=== PATIENT | female | born 1990 | race Caucasian/White ===

== ENCOUNTER 2019-08-04 12:03 | Day surgery (SDC) | payer OTHER ==
[2019-08-02 10:03] VITALS: BMI 36.6
[2019-08-02 11:14] LABS: Hemoglobin 14.1 g/dL (12.0-16.0); Mean Corpuscular HGB CONC 34.5 g/dL (32.0-36.0); Mean Corpuscular Hemoglobin 29.7 pg (27.0-31.0); Platelet Count 254 thou/uL (130-400); RBC Distribution Width 11.9 % (11.5-14.5); Red Blood Cell (RBC) Count 4.75 mill/uL (4.20-5.40); White Blood Cell (WBC) Count 8.3 thou/uL (4.8-10.8)
[2019-08-04] MEDS ORDERED: Fentanyl 100 MCG/2 ML VIAL ONE ×2 (12:47→15:09)
[2019-08-04] MEDS ORDERED: Propofol 500 MG/50 ML VIAL ONE (13:20)
[2019-08-04] MEDS ORDERED: PROPOFOL 20 ML ONE (14:42)
--- NOTE | 2019-08-05 15:27 | OP ---
DATE OF PROCEDURE: 08/04/2019 PREOPERATIVE DIAGNOSES: 1. Intrauterine at 13 weeks. 2. History of cervical incompetence and periviable delivery. POSTOPERATIVE DIAGNOSES: 1. Intrauterine at 13 weeks. 2. History of cervical incompetence and periviable delivery. PROCEDURE: Prophylactic Calderon cervical cerclage. ANESTHESIA: General LMA. SPAR FINISHER SURGEON: None. ESTIMATED BLOOD LOSS: 5 mL. PATHOLOGY: None. COMPLICATIONS: None. FINDINGS: A slightly foreshortened cervix. I externally dilated 1 cm, internally closed. Upon conclusion of the cerclage, the Mersilene tape was taut with the cervix closed, long and high and the knot is present about 1'o clock. DESCRIPTION OF PROCEDURE: The patient was taken to the operating room, where TIVA anesthesia was obtained without difficulty. The patient was prepped and draped in a sterile fashion in the [facility]. The bladder was catheterized and the cervix was visualized after placing a weighted speculum as well as an anterior retractor. The cervix was grasped with ring forceps on the anterior and posterior lips. A Mersilene tape was used to take 4 circumferential bites around the cervix, tying the knot at the 12 to 1 o'clock position and then after the knot was cinched down, checking the cervix to ensure it was closed as well as tying an air knot on top of the taut knot in order to identify the cerclage. There was no active bleeding at the conclusion of this procedure. The vagina was irrigated with saline and suctioned. All instruments were removed out of the vagina. The patient tolerated the procedure well. Sponge and needle counts were correct x2. The patient was taken to recovery in stable condition. Job ID: [id number]
== END 2019-08-04 17:12 | disposition home or self-care (01) ==
LOC: SDC 12:03
PROVIDERS: ATTEND Student in an Organized Health Care Education/Training Program
PROC: 0UVC7ZZ Restriction of Cervix, Via Natural or Artificial Opening (ICD-10-PCS; principal; 2019-08-04)
DX: O34.31 Maternal care for cervical incompetence, first trimester (principal); O10.911 Unspecified pre-existing hypertension complicating pregnancy, first trimester; Z3A.13 13 weeks gestation of pregnancy; Z87.59 Personal history of other complications of pregnancy, childbirth and the puerperium; Z79.82 Long term (current) use of aspirin
CPT/HCPCS: 85027; 86850; 86900; 86901; J0690; J2704; J3010

== ENCOUNTER 2020-01-03 12:19 | Observation (INO) | payer OTHER ==
[2020-01-03 12:54] VITALS: BMI 43.2
[2020-01-03] MEDS ORDERED: hydrALAZINE 20 MG/ML VIAL SLOW IVP PRN ×2 (13:12→14:51)
[2020-01-03 13:56] LABS: #Eosinphils 0.1 thou/uL (0.0-0.7); #Lymphocytes 1.9 thou/uL (1.20-3.40); #Monocytes 0.6 thou/uL (0.11-0.59); #Neutrophils 6.1 thou/uL (1.40-6.50); %Basophils 0.4 % (0.0-1.0); %Eosinophils 0.7 % (0.0-10.0); %Monocytes 6.7 % (0.0-10.0); %Neutrophils 70.1 % (42.0-75.0); Hemoglobin 12.4 g/dL (12.0-16.0); Mean Corpuscular HGB CONC 33.9 g/dL (32.0-36.0); Mean Corpuscular Hemoglobin 27.5 pg (27.0-31.0); Mean Corpuscular Volume 81.2 fL (78.0-98.0); Mean Platelet Volume 8.2 fL (7.4-10.4); Platelet Count 255 thou/uL (130-400); RBC Distribution Width 14.4 % (11.5-14.5); Red Blood Cell (RBC) Count 4.51 mill/uL (4.20-5.40); White Blood Cell (WBC) Count 8.7 thou/uL (4.8-10.8)
[2020-01-03 14:08] LABS: Creatinine, Urine 34.16 mg/dL (47-110); Protein, Urine Random Quant Less than 10 mg/dL (1-14)
[2020-01-03 14:16] LABS: ALT (SGPT) 12 U/L (8-55); AST (SGOT) 16 U/L (5-34); Albumin 3.3 g/dL (3.5-5.0); Alkaline Phosphatase 171 U/L (40-110); Anion Gap 14 mmol/L (10-20); BUN (Urea Nitrogen) Less than 4 mg/dL (7.0-18.7); Bilirubin, Total 0.6 mg/dL (0.2-1.2); Calc. Creatinine Clearance 281 mL/min (70-130); Calcium 8.5 mg/dL (7.8-10.44); Carbon Dioxide 21 mmol/L (22-29); Chloride 107 mmol/L (98-107); Estimated GFR-MDRD Greater than 90; Globulin 3.4 g/dL (2.4-3.5); Glucose 67 mg/dL (70-105); Potassium 3.4 mmol/L (3.5-5.1); Protein, Total 6.7 g/dL (6.0-8.3); Sodium 139 mmol/L (136-145)
[2020-01-03] MEDS ORDERED: Butorphanol Tartrate 1 MG/ML VIAL SLOW IVP PRN (14:51)
[2020-01-03] MEDS ORDERED: Acetaminophen 500 MG TAB PO PRN (14:51)
[2020-01-03] MEDS ORDERED: Ondansetron PF 4 MG/2 ML Vial IVP PRN (14:51)
[2020-01-03] MEDS ORDERED: Promethazine HCl 25 MG/ML VIAL IM PRN (14:51)
[2020-01-03] MEDS ORDERED: Meperidine HCl/PF 25 MG/ML VIAL IM/IV PRN (14:51)
[2020-01-03] MEDS: Betamet Acet/Betamet Na Ph 30 MG/5 ML VIAL IM SCH (15:09)
[2020-01-03] MEDS: Labetalol 100 MG TAB PO SCH (15:12)
[2020-01-03 15:13] VITALS: BP 150/68
[2020-01-03] MEDS ORDERED: Potassium Chloride 20 MEQ TAB PO SCH (20:45)
--- NOTE | 2020-01-04 05:23 | HP ---
REGULAR PHYSICIAN: Wilda Poe MD CHIEF COMPLAINT: Elevated blood pressures in the office. HISTORY OF PRESENT ILLNESS: Ms. Carrera is a 29-year-old G4, P2 with an estimated date of confinement of 02/05/2020 who was sent over to Labor and Delivery from [facility] by Dr. Poe for elevated blood pressures there. She believes her blood pressure there was 166/90. She denies associated headache, visual changes, or right upper quadrant pain. Her care has been with Dr. Poe. A cerclage was placed earlier in her . PAST OBSTETRICAL HISTORY: Includes a loss at approximately 5 months in August 2014 followed by vaginal deliveries both at 37 weeks after placement of cerclages. PAST MEDICAL HISTORY: Chronic hypertension per Dr. Poe. PAST SURGICAL HISTORY: Cholecystectomy. CURRENT MEDICATIONS: vitamins. ALLERGIES: NO KNOWN ALLERGIES. SOCIAL HISTORY: Denies tobacco, alcohol, or drug use. FAMILY HISTORY: Unremarkable. REVIEW OF SYSTEMS: Denies nausea, vomiting, fever, chills, ruptured membranes, vaginal bleeding, headache, or visual changes. PHYSICAL EXAMINATION: VITAL SIGNS: Serial blood pressures are 142/70, 147/73, 154/87, and 165/70. GENERAL: She is pleasant and in no acute distress. CHEST: Clear to auscultation. CARDIOVASCULAR: Regular rate and rhythm. ABDOMEN: Soft, nontender, and gravid. PELVIC: Deferred. heart rate tracing is stable with no decelerations. Irritability seen. LABORATORY DATA: CBC, white count 8.7, hemoglobin and hematocrit 12.4 and 36.4, platelet count 255,000. Chemistry, sodium 139, potassium 3.4. Creatinine 0.48. Glucose 67, total bilirubin 0.6, AST and ALT are 16 and 12 respectively. Random total urine protein less than 10. Urine creatinine 34.1. ASSESSMENT: 1. 35-2/7th week intrauterine . 2. Chronic hypertension, rule out severe preeclampsia. 3. Cerclage in place. PLAN: I have discussed the findings with Dr. Poe. At this time, the plan is to start her on labetalol 200 mg p.o. b.i.d. for blood pressure and to give her 2 doses of steroids for lung maturity. She will be observed closely. Job ID: [id number]
--- NOTE | 2020-01-04 06:11 | PDOC.EVN ---
Event Note - Event Note Event Note: Resting, no c/o. BPs 140-110s systolic. FHTs stable. Labs were normal on admission. Plan: Cont. Labetalol 200 BID. 2nd dose of Celestone due at 1500 today. Anticipate DC later this PM
[2020-01-04] MEDS ORDERED: Potassium Chloride 20 MEQ TAB PO SCH (08:00)
[2020-01-04] MEDS: Labetalol 100 MG TAB PO SCH (09:02)
--- NOTE | 2020-01-04 13:19 | PDOC.LDPN ---
Labor & Delivery Progress Note - Subjective Subjective: comfortable - Objective Vital signs reviewed and normal: yes General: NAD Uterine fundus: non tender FHT: category 1 [place] contractions every: 5min -: stable BP, started on labetalol, no sx pIH, neg protein. No sx PIH. DC home after 2nd dose BMZ and monitor BP closely, if increases will be for delivery. Otherwise IOL at 37w
[2020-01-04] MEDS: Betamet Acet/Betamet Na Ph 30 MG/5 ML VIAL IM SCH (15:20)
== END 2020-01-04 16:05 | disposition home or self-care (01) ==
LOC: L&D/OP 12:19 → L&D 17:14
PROVIDERS: ADMIT Student in an Organized Health Care Education/Training Program; ATTEND Student in an Organized Health Care Education/Training Program
DX: O10.913 Unspecified pre-existing hypertension complicating pregnancy, third trimester (principal); O34.33 Maternal care for cervical incompetence, third trimester; Z3A.35 35 weeks gestation of pregnancy; Z79.82 Long term (current) use of aspirin
CPT/HCPCS: 36415; 80053; 82570; 84156; 85025; 87081; 96372; G0378; J0702

== ENCOUNTER 2020-01-15 05:02 | Outpatient (CLI) | payer OTHER ==
[2020-01-15 17:23] LABS: SARS-CoV-2 MS2 Positive; SARS-CoV-2 N Gene Negative; SARS-CoV-2 S Gene Negative; SARS-CoV-2 orf1ab Negative
== END 2020-01-15 05:03 | disposition home or self-care (01) ==
LOC: ERS 05:02
PROVIDERS: ATTEND Student in an Organized Health Care Education/Training Program
DX: Z01.812 Encounter for preprocedural laboratory examination (principal); Z11.59 Encounter for screening for other viral diseases
CPT/HCPCS: 87635; U0003

== ENCOUNTER 2020-01-17 07:01 | Inpatient (IN) | payer OTHER ==
[2020-01-17 07:30] VITALS: BMI 40.2
[2020-01-17] MEDS: Lactated Ringer's 1,000 ML IV SCH (07:38)
--- NOTE | 2020-01-17 07:58 | PDOC.LDHP ---
Labor and Delivery H&P Chief complaint: scheduled induction HPI: 29yo A1 at 37w by LMP here for IOL due to CHTN on meds and increasing BPs. No sx PIH. Current gestational age (weeks): 37 Dating criteria: last menstrual period Grav: 4 Para: 2 OB History Details: hx of 2nd trimester PTD and cervical insufficiency Current complications: other (cerclage placement, 17P weekly) Abnormal US findings: No (EFW > 99%ile) Past Medical History: CHTN, obesity Current medications: pre- vitamins, iron, other (labetalol 200 bid, ASA 81mg) Previous surgical history: other (cerclage x 3) Allergies/Adverse Reactions: Allergies Allergy/AdvReac Type Severity Reaction Status Date / Time No Known Allergies Allergy Verified 01/17/20 07:30 Social history: none - Physical Exam Vital signs reviewed and normal: yes General: NAD Heart: RRR Lungs: CTAB Abdomen: gravid Extremeties: no edema FHT: category 1 [place] contractions every: none - Vaginal Exam cm dilated: 3 Effacement: 50% Station: -2 (arom clear) - OB Labs RH: positive Antibody Screen: negative HIV: negative RPR: negative HEPSAg: negative 1 hour GCT: positive 3 hour GTT: neg for gdm GBS: negative Urine drug screen: negative Rubella: immune - Assessment L&D Assessment: medically indicated induction - Plan Plan: admit to L&D, labor augmentation if indicated, informed consent obtained, anesthesia consult for pain management
[2020-01-17] MEDS ORDERED: NS / Oxytocin 40 units/1000ml 1,000 ML IV PRN (07:59)
[2020-01-17] MEDS ORDERED: HYDROcodone/Acetaminophen 5/325 mg Tablet PO PRN (07:59)
[2020-01-17] MEDS ORDERED: Carboprost 250 MCG/ML AMP IM PRN (07:59)
[2020-01-17] MEDS ORDERED: Ondansetron PF 4 MG/2 ML Vial IVP PRN ×2 (07:59→14:53)
[2020-01-17] MEDS ORDERED: Butorphanol Tartrate 1 MG/ML VIAL SLOW IVP PRN (07:59)
[2020-01-17] MEDS ORDERED: Misoprostol 200 MCG TAB PR PRN (07:59)
[2020-01-17] MEDS ORDERED: Ibuprofen 800 MG TAB PO PRN (07:59)
[2020-01-17] MEDS ORDERED: hydrALAZINE 20 MG/ML VIAL SLOW IVP PRN (07:59)
[2020-01-17] MEDS ORDERED: Acetaminophen 500 MG TAB PO PRN (07:59)
[2020-01-17] MEDS ORDERED: Diphenoxylate HCl/Atropine Tablet PO PRN (07:59)
[2020-01-17] MEDS ORDERED: Promethazine HCl 25 MG/ML VIAL IM PRN ×2 (07:59→14:53)
[2020-01-17] MEDS ORDERED: Lidocaine 1% (PF) 30 ML VIAL SC PRN (07:59)
[2020-01-17 08:11] LABS: Hemoglobin 12.8 g/dL (12.0-16.0); Mean Corpuscular HGB CONC 33.5 g/dL (32.0-36.0); Mean Corpuscular Hemoglobin 26.7 pg (27.0-31.0); Mean Corpuscular Volume 79.6 fL (78.0-98.0); Mean Platelet Volume 8.4 fL (7.4-10.4); Platelet Count 285 thou/uL (130-400); RBC Distribution Width 14.9 % (11.5-14.5); Red Blood Cell (RBC) Count 4.78 mill/uL (4.20-5.40); White Blood Cell (WBC) Count 7.2 thou/uL (4.8-10.8)
[2020-01-17] MEDS: NS w/ Oxytocin 10 units 500 ML IV SCH (08:19)
[2020-01-17 08:25] LABS: ALT (SGPT) 12 U/L (8-55); AST (SGOT) 16 U/L (5-34); Albumin 3.5 g/dL (3.5-5.0); Alkaline Phosphatase 220 U/L (40-110); Anion Gap 16 mmol/L (10-20); BUN (Urea Nitrogen) 7 mg/dL (7.0-18.7); Bilirubin, Total 0.9 mg/dL (0.2-1.2); Calc. Creatinine Clearance 231 mL/min (70-130); Calcium 8.9 mg/dL (7.8-10.44); Carbon Dioxide 18 mmol/L (22-29); Chloride 106 mmol/L (98-107); Estimated GFR-MDRD Greater than 90; Globulin 3.1 g/dL (2.4-3.5); Glucose 131 mg/dL (70-105); Potassium 3.9 mmol/L (3.5-5.1); Protein, Total 6.6 g/dL (6.0-8.3); Sodium 136 mmol/L (136-145)
[2020-01-17 08:43] LABS: Syphilis Antibody Nonreactive (Nonreactive); Syphilis Antibody Index 0.04 S/CO (<1.00 Non-Reactive)
[2020-01-17 08:44] LABS: HBSAg Index 0.18 S/CO (0-0.99); Hep B Surf Ag Non-Reactive S/CO (NonReactive)
[2020-01-17] MEDS ORDERED: Bupivacaine 0.25% HCL 30 ML VIAL ONE (10:01)
[2020-01-17] MEDS ORDERED: Fentanyl 4 mcg/Bup 0.1% Cadd 100 ML ONE ×2 (13:03→21:51)
[2020-01-17] MEDS ORDERED: Naloxone HCl 0.4 mg/ml Vial IVP PRN ×2 (14:53)
[2020-01-17] MEDS ORDERED: diphenhydrAMINE 50 MG/ML VIAL IVP PRN (14:53)
[2020-01-17] MEDS ORDERED: Acetaminophen 325 MG TAB PO PRN (14:53)
[2020-01-17] MEDS ORDERED: Lactated Ringer's 500 ML IV PRN (14:53)
[2020-01-17] MEDS ORDERED: EPHEDRINE 25 MG/5 ML SYRINGE SLOW IVP PRN (14:53)
[2020-01-17] MEDS ORDERED: Communication Order-Pharmacy FS SCH (15:00)
[2020-01-17] MEDS ORDERED: Fentanyl 4 mcg/Bupivacaine 0.1% Cassette 100 ML EPIDURAL SCH (15:00)
[2020-01-18] MEDS: Lactated Ringer's 1,000 ML IV SCH ×4 (03:22→23:26)
[2020-01-18] MEDS: NS w/ Oxytocin 10 units 500 ML IV SCH (03:22)
[2020-01-18] MEDS ORDERED: hydrALAZINE 20 MG/ML VIAL SLOW IVP PRN ×2 (05:06→10:17)
[2020-01-18] MEDS ORDERED: Azithromycin 500 MG VIAL ONE (06:04)
[2020-01-18] MEDS ORDERED: Bicitra 30 ML UDCUP ONE (06:04)
[2020-01-18] MEDS ORDERED: Lidocaine 2% 10 ML INJ ONE (06:05)
[2020-01-18] MEDS ORDERED: Bupivacaine PF 0.5% 30 ML VIAL ONE (06:05)
[2020-01-18] MEDS ORDERED: MORPHINE 5 MG/10 ML PF VIAL ONE (06:05)
[2020-01-18] MEDS ORDERED: EPHEDRINE 25 MG/5 ML SYRINGE ONE (06:07)
[2020-01-18] MEDS ORDERED: Ondansetron PF 4 MG/2 ML Vial ONE (06:07)
[2020-01-18] MEDS ORDERED: PHENYLEPHRINE-NS 100 MCG/ML 10 ML SYRINGE ONE (06:07)
[2020-01-18] MEDS ORDERED: Oxytocin 10 UNITS/ML VIAL ONE (06:07)
--- NOTE | 2020-01-18 06:07 | PDOC.LDPN ---
Labor & Delivery Progress Note - Subjective Subjective: comfortable - Objective Vital signs reviewed and normal: yes General: NAD Uterine fundus: non tender Dilation: 7 Effacement: 90% Station: -1 FHT: category 2 ( tachycardia to 190s), late decelerations, absent or minimal variables [place] contractions every: 5min Resuscitative measures: maternal IV fluids, maternal position change Plan: resuscitative measures -: Patient has not progressed on a normal labor curve, has intermittently had adequate contractions, has not had SVE change since 2200 last night. Baby has NRFHT at this point and pt is dispo for PCS for NRFHT and arrest of active phase. Pt agrees to proceed. s/p hydralazine x 1, BP nl-mild, no sx PIH.
[2020-01-18] MEDS ORDERED: CEFAZOLIN 2 GM in Premix Bag 1 BAG IVPB SCH (06:15)
[2020-01-18] MEDS ORDERED: Azithromycin 500 MG in Sodium Chloride 0.9% 250 ML 250 ML IVPB SCH (06:15)
[2020-01-18] MEDS ORDERED: Bicitra 30 ML UDCUP PO SCH (06:15)
[2020-01-18] MEDS ORDERED: Misoprostol 200 MCG TAB ONE ×2 (06:19→07:49)
[2020-01-18] MEDS ORDERED: Methylergonovine 0.2 MG/ML VIAL ONE (06:19)
--- NOTE | 2020-01-18 06:19 | PDOC.OPDEL ---
OB Operative/Delivery Note Delivery Dr/Surgeon: Deepika Pre-Delivery Diagnosis: arrest of dilation, non-reassuring tracing Procedure/Post Delivery Dx: primary low transverse CS Weeks gestation: 37 Anesthesia: epidural - Findings A Sex: female - Additional Findings/Plan Placenta delivered: spontaneous findings: low transverse hysterotomy without extension, normal uterus, normal tubes, normal ovaries Post delivery plan: routine recovery
[2020-01-18] MEDS ORDERED: Metoclopramide HCl 10 MG/2 ML VIAL ONE (06:46)
[2020-01-18] MEDS ORDERED: Naloxone HCl 0.4 mg/ml Vial IV PRN (07:21)
[2020-01-18] MEDS ORDERED: Ondansetron HCl/PF 4 MG/2 ML Vial IVP PRN (07:21)
[2020-01-18] MEDS ORDERED: Promethazine HCl 25 MG/ML VIAL IM PRN ×2 (07:21→10:17)
[2020-01-18] MEDS ORDERED: Promethazine HCl 25 MG SUPP PR PRN (07:21)
[2020-01-18] MEDS ORDERED: Naloxone HCl 0.4 mg/ml Vial IVP PRN ×2 (07:21)
[2020-01-18] MEDS ORDERED: L&D-Morphine 4 MG/ML VIAL SLOW IVP PRN (07:21)
[2020-01-18] MEDS ORDERED: HYDROmorphone 2 MG/ML VIAL SLOW IVP PRN (07:21)
[2020-01-18] MEDS ORDERED: Ondansetron PF 4 MG/2 ML Vial IVP PRN ×2 (07:21→10:17)
[2020-01-18] MEDS ORDERED: diphenhydrAMINE 50 MG/ML VIAL IVP PRN (07:21)
[2020-01-18] MEDS ORDERED: Ketorolac Tromethamine 30 MG/ML VIAL ONE (07:26)
[2020-01-18] MEDS ORDERED: Ketorolac Tromethamine 30 MG/ML VIAL IVP SCH (07:30)
[2020-01-18] MEDS ORDERED: Communication Order-Pharmacy FS SCH (07:30)
--- NOTE | 2020-01-18 08:03 | OP ---
DATE OF PROCEDURE: 01/18/2020 PRIMARY OB: Wilda Poe MD This dictation serves as documentation. I was the junior administrative assistant for a primary due to arrest of labor and non-reassuring heart tones. Primary surgeon is Dr. Wilda Poe. Please refer to her note for complete details. Job ID: [id number]
[2020-01-18] MEDS ORDERED: Carboprost 250 MCG/ML AMP ONE (08:04)
[2020-01-18] MEDS: Meperidine HCl/PF 25 MG/ML VIAL SLOW IVP PRN ×2 (08:54→09:19)
[2020-01-18] MEDS ORDERED: Meperidine HCl/PF 25 MG/ML VIAL ONE ×2 (08:54→09:17)
[2020-01-18] MEDS ORDERED: Magnesium Sulfate 20 gm/500 ml 20 GM/500 ML BAG ONE (09:48)
[2020-01-18] MEDS: Magnesium Sulfate 20 gm/500 ml 20 GM/500 ML BAG IVPB SCH ×2 (10:08→18:06)
[2020-01-18] MEDS ORDERED: Lanolin Ointment 7 GM TUBE TOP PRN (10:17)
[2020-01-18] MEDS ORDERED: diphenhydrAMINE 25 MG CAP PO PRN (10:17)
[2020-01-18] MEDS ORDERED: Acetaminophen 325 MG TAB PO PRN (10:17)
[2020-01-18] MEDS ORDERED: Bisacodyl 10 MG SUPP PR PRN (10:17)
[2020-01-18] MEDS ORDERED: Ferrous Sulfate 325 MG TAB PO SCH (10:30)
[2020-01-18] MEDS ORDERED: Prenatal Vitamin 1 TAB PO SCH (10:30)
[2020-01-18] MEDS ORDERED: Docusate Calcium (SURFAK) 240 MG CAP PO SCH (10:30)
[2020-01-18] MEDS ORDERED: Calcium Gluc 4.6 MEQ/10 ML (100 MG/ML) SLOW IVP SCH (11:00)
[2020-01-18] MEDS: Ketorolac Tromethamine 30 MG/ML VIAL IVP PRN ×2 (14:02→20:24)
[2020-01-18] MEDS: Docusate Calcium (SURFAK) 240 MG CAP PO SCH (20:24)
[2020-01-18] MEDS ORDERED: HYDROcodone/Acetaminophen 5/325 mg Tablet PO PRN (21:01)
[2020-01-19] MEDS: Ketorolac Tromethamine 30 MG/ML VIAL IVP PRN (04:15)
[2020-01-19] MEDS: Magnesium Sulfate 20 gm/500 ml 20 GM/500 ML BAG IVPB SCH (04:15)
[2020-01-19 05:52] LABS: Hemoglobin 9.9 g/dL (12.0-16.0); Mean Corpuscular HGB CONC 33.2 g/dL (32.0-36.0); Mean Corpuscular Hemoglobin 26.6 pg (27.0-31.0); Mean Corpuscular Volume 80.1 fL (78.0-98.0); Mean Platelet Volume 7.8 fL (7.4-10.4); Platelet Count 251 thou/uL (130-400); RBC Distribution Width 15.1 % (11.5-14.5); Red Blood Cell (RBC) Count 3.72 mill/uL (4.20-5.40); White Blood Cell (WBC) Count 13.9 thou/uL (4.8-10.8)
[2020-01-19] MEDS ORDERED: Adacel (T-DAP) 0.5 ML SYRINGE IM ONE (09:00)
--- NOTE | 2020-01-19 09:36 | PDOC.PP ---
Post Progress Note Post Day #: 1 PO intake tolerated: yes Flatus: yes Ambulation: yes Weight Weight 220 lb - Physical Examination General: NAD Respiratory: non-labored breathing Abdominal: no distention, appropriately TTP Fundus firm & at: umb Skin: no rash Neurological: no gross focal deficits Psychiatric: normal affect Result Diagrams: 01/19/20 05:30 01/17/20 07:50 Additional Labs: Post Labs Blood Type O POSITIVE 01/17/20 07:50 Hep Bs Antigen Non-Reactive S/CO (NonReactive) 01/17/20 07:50 - Assessment/Plan POD1 s/p PCS for NRFHT and AOAP with SIPIH VSSAF, mild range Hgb 9.9 postop anemia, asymptomatic, cont Iron and PNV. Routine postop advances, ok for reg diet SIPIH- restart labetalol 200 bid, s/p Mag, no sx PIH Rh pos RImm Transfer to PP
[2020-01-19] MEDS ORDERED: Labetalol 100 MG TAB PO SCH (12:00)
[2020-01-19] MEDS: Docusate Calcium (SURFAK) 240 MG CAP PO SCH ×2 (12:06→21:29)
[2020-01-19] MEDS: Ferrous Sulfate 325 MG TAB PO SCH ×3 (12:06→21:30)
[2020-01-19] MEDS: Prenatal Vitamin 1 TAB PO SCH (12:06)
[2020-01-19] MEDS: HYDROcodone/Acetaminophen 5/325 mg Tablet PO PRN ×2 (12:39→17:41)
[2020-01-19] MEDS: Ibuprofen 800 MG TAB PO SCH (21:31)
[2020-01-19] MEDS: Labetalol 100 MG TAB PO SCH (21:31)
[2020-01-19] MEDS: Simethicone Chewable 80 MG TAB PO PRN (21:32)
[2020-01-20] MEDS: Simethicone Chewable 80 MG TAB PO PRN (05:23)
[2020-01-20] MEDS: Ibuprofen 800 MG TAB PO SCH ×2 (05:23→14:00)
[2020-01-20] MEDS: Docusate Calcium (SURFAK) 240 MG CAP PO SCH (09:12)
[2020-01-20] MEDS: Prenatal Vitamin 1 TAB PO SCH (09:12)
[2020-01-20] MEDS: Labetalol 100 MG TAB PO SCH (09:12)
[2020-01-20] MEDS: Ferrous Sulfate 325 MG TAB PO SCH (09:12)
--- NOTE | 2020-01-20 13:56 | PDOC.PP ---
Post Progress Note Post Day #: 2 PO intake tolerated: yes Flatus: yes Ambulation: yes Vital Signs (12 hours) Temp Pulse Resp BP Pulse Ox 01/20/20 11:35 97.9 F 94 12 122/72 98 01/20/20 09:12 86 01/20/20 07:40 96 01/20/20 07:14 97.7 F 86 20 119/59 L 96 01/20/20 05:20 98.3 F 94 16 126/59 L Weight Weight 220 lb - Physical Examination General: NAD Respiratory: non-labored breathing Abdominal: no distention, appropriately TTP Fundus firm & at: umb Skin: CS incision dry & intact, no rash Neurological: no gross focal deficits Psychiatric: normal affect Result Diagrams: 01/19/20 05:30 01/17/20 07:50 Additional Labs: Post Labs Blood Type O POSITIVE 01/17/20 07:50 Hep Bs Antigen Non-Reactive S/CO (NonReactive) 01/17/20 07:50 - Assessment/Plan POD2 s/p PCS for NRFHT, AOAP VSSAF SIPIH- s/p Mag, on labetalol 200 bid, bp wnl, no sx pih Met all postop milestones Postop anemia d/t surgical blood loss- asx, cont iron and pnv on DC Rh pos RImm DC home will monitor BP daily, FU 2 wk
[2020-01-20 16:24] VITALS: BP 134/61; TEMP 97.8
--- NOTE | 2020-01-20 18:59 | OP ---
DATE OF PROCEDURE: 01/18/2020 PREOPERATIVE DIAGNOSES: 1. Intrauterine at 37 weeks and 3 days. 2. Chronic hypertension. 3. History of cervical insufficiency. 4. Nonreassuring heart tones. 5. Arrest of active phase at 7 cm. POSTOPERATIVE DIAGNOSES: 1. Intrauterine at 37 weeks and 3 days. 2. Chronic hypertension. 3. History of cervical insufficiency. 4. Nonreassuring heart tones. 5. Arrest of active phase at 7 cm. PROCEDURE PERFORMED: Primary low-transverse section via Pfannenstiel skin incision. ANESTHESIA: Epidural. POCKET CUTTER SURGEON: Benny Mueller MD ESTIMATED BLOOD LOSS: 1285 mL. COMPLICATIONS: None. DRAINS: Morales catheter. PATHOLOGY: None. FINDINGS: Female infant, cephalic presentation, clear amniotic fluid, weighing 10 pounds 6 ounces with Apgars of 5 and 7. Hysterotomy without extension. Normal uterus, ovaries, and tubes bilaterally. DESCRIPTION OF PROCEDURE: The patient was taken to the operating room where epidural anesthesia was found to be adequate. The patient was prepped and draped in a sterile fashion in a dorsal supine position with leftward tilt. After ensuring adequacy of anesthesia, a Pfannenstiel skin incision was made and carried down to the underlying subcutaneous tissue with a knife. The fascia was nicked in the midline with a knife and carried laterally with the Brito scissors. The superior aspect of the fascia was tented with 2 Elli's and dissected off the rectus sharply with the Brito's and bluntly with a laparotomy sponge. The inferior aspect of the fascia was tented with 2 Elli's and dissected off the rectus with the Brito scissors down to the pubic symphysis. The rectus was bluntly divided in the midline and the peritoneum was bluntly entered into and manually retracted. The Nasim O retractor was placed. The vesicouterine peritoneum was incised with Metzenbaums and a bladder flap was created digitally. The lower uterine segment was incised in a transverse fashion and extended with a Erwin maneuver. The infant's head was brought to the hysterotomy and delivered with fundal pressure. The 's body was delivered atraumatically as well and cord blood was obtained. The infant was vigorous. Therefore, gases were not sent. The placenta was allowed to spontaneously deliver. The uterus was exteriorized, cleared of all clots and debris and noted to be boggy, and Methergine was called for. The uterus was lapped out and placed back into the abdomen and the hysterotomy was repaired with a #1 Monocryl in a running locking fashion. A second layer of #1 Monocryl horizontally imbricating was also placed. An additional [id number] stitch was placed in the left apex of the hysterotomy for hemostasis. Uterine tone had improved at that time. The pelvis was copiously irrigated and suctioned. Hemostasis was noted to be excellent. The Nasim O retractor was removed. The rectus muscles were examined and noted to be hemostatic. The fascia was reapproximated with 0 PDS x2 sutures with excellent reapproximation. The subcutaneous tissue was irrigated and cauterized of any bleeders and reapproximated with 2-0 plain gut in a running fashion. The skin was closed with 4-0 Monocryl in a subcuticular fashion. Dermabond was applied as well as a pressure dressing. The patient tolerated the procedure well. Sponge, lap, and needle counts correct x2. The patient received Ancef 2 g prior to the procedure as well as azithromycin 500 mg. The patient was taken to recovery room in stable condition. Job ID: [id number]
[2020-01-23] MEDS ORDERED: Ibuprofen 800 MG TAB PO SCH (22:00)
== END 2020-01-20 18:20 | disposition home or self-care (01) | DRG 787 ==
LOC: L&D 07:01 → 3SW 01-19 12:22 → EDSTATUS 02-05 12:54
PROVIDERS: ADMIT Student in an Organized Health Care Education/Training Program; ATTEND Student in an Organized Health Care Education/Training Program
PROC: 3E033VJ Introduction of Other Hormone into Peripheral Vein, Percutaneous Approach (ICD-10-PCS; 2020-01-17)
PROC: 10D00Z1 Extraction of Products of Conception, Low, Open Approach (ICD-10-PCS; principal; 2020-01-18)
DX: O62.0 Primary inadequate contractions (principal); O10.92 Unspecified pre-existing hypertension complicating childbirth; Z3A.37 37 weeks gestation of pregnancy; Z37.0 Single live birth; O99.214 Obesity complicating childbirth; E66.9 Obesity, unspecified; O76 Abnormality in fetal heart rate and rhythm complicating labor and delivery; O90.81 Anemia of the puerperium; D64.9 Anemia, unspecified; Z90.49 Acquired absence of other specified parts of digestive tract
CPT/HCPCS: 36415; 51702; 80053; 85027; 86780; 86850; 86900; 86901; 87340; J0360; J0456; J0690; J1885; J2001; J2175; J2210; J2274; J2405; J2590; J2765; J3475; J3490; S0020

== ENCOUNTER 2021-03-20 14:50 | Emergency (ER) | payer OTHER ==
[2021-03-20 17:17] LABS: BHCG - Serum Negative (NEGATIVE); Pregs Control Background? CLEAR/WHITE (CLR/WHITE); Pregs Control Bar Appear? YES (CONTROL BAR)
[2021-03-20 17:19] LABS: #Basophils 0.1 thou/uL (0.0-0.2); #Lymphocytes 1.4 thou/uL (1.20-3.40); #Monocytes 0.6 thou/uL (0.11-0.59); #Neutrophils 9.3 thou/uL (1.40-6.50); %Basophils 0.5 % (0.0-1.0); %Eosinophils 0.1 % (0.0-10.0); %Lymphocytes 12.7 % (21.0-51.0); %Monocytes 4.9 % (0.0-10.0); %Neutrophils 81.9 % (42.0-75.0)
[2021-03-20 17:23] LABS: ALT (SGPT) 25 U/L (8-55); AST (SGOT) 18 U/L (5-34); Albumin 4.6 g/dL (3.5-5.0); Alkaline Phosphatase 71 U/L (40-110); Anion Gap 11 mmol/L (10-20); BUN (Urea Nitrogen) 16 mg/dL (7.0-18.7); Bilirubin, Total 0.5 mg/dL (0.2-1.2); Calc. Creatinine Clearance 0 mL/min (70-130); Calcium 9.3 mg/dL (7.8-10.44); Carbon Dioxide 24 mmol/L (22-29); Chloride 106 mmol/L (98-107); Glucose 97 mg/dL (70-105); Lipase 26 U/L (8-78); Potassium 4.2 mmol/L (3.5-5.1); Protein, Total 8.6 g/dL (6.0-8.3); Sodium 137 mmol/L (136-145)
[2021-03-20 17:33] LABS: Hemoglobin 12.4 g/dL (12.0-16.0); MDiff Complete? YES; Mean Corpuscular HGB CONC 31.6 g/dL (32.0-36.0); Mean Corpuscular Hemoglobin 23.7 pg (27.0-31.0); Mean Corpuscular Volume 74.9 fL (78.0-98.0); Mean Platelet Volume 8.5 fL (7.4-10.4); Microcytosis SLIGHT = 6-15 cells (100X) (0-5/hpf); Platelet Count 339 thou/uL (130-400); Platelet Morphology Comment Appears Adequate; RBC Distribution Width 15.6 % (11.5-14.5); Red Blood Cell (RBC) Count 5.23 mill/uL (4.20-5.40); White Blood Cell (WBC) Count 11.3 thou/uL (4.8-10.8)
[2021-03-20] MEDS ORDERED: Meclizine HCl 25 MG TAB ONE (18:17)
[2021-03-20] MEDS ORDERED: Lorazepam 2 MG/ML VIAL ONE (18:17)
[2021-03-20] MEDS ORDERED: Ondansetron PF 4 MG/2 ML Vial ONE (18:17)
[2021-03-20 19:14] LABS: Bacteria/HPF 1+ HPF (None Seen); Bilirubin Negative (Negative); Blood, Urine Negative (Negative); Clarity Turbid (Clear); Glucose, Urine (Dipstick) Normal (Negative); Ketone, Urine 60 mg/dL (Negative); Leukocyte Negative Leu/uL (Negative); Nitrite Negative (Negative); Protein, Urine (Dipstick) 30 mg/dL (Neg-Trace); RBC/HPF 0-3 HPF (0-3); Specific Gravity, Urine 1.031 (1.002-1.036); Urobilinogen Normal mg/dL (Less than 2); pH, Urine 5.5 (5.0-9.0)
== END 2021-03-20 20:04 | disposition home or self-care (01) ==
LOC: ERS 14:50
DX: H81.399 Other peripheral vertigo, unspecified ear (principal)
CPT/HCPCS: 36415; 80053; 81003; 81015; 83690; 84703; 85025; 96374; 96375; J2060; J2405

== ENCOUNTER 2022-10-28 09:14 | Outpatient (CLI) | payer OTHER | END 2022-10-28 09:15 | disposition home or self-care (01) | LOC: BICMRI 09:14 | PROVIDERS: ATTEND Student in an Organized Health Care Education/Training Program | DX: R92.8 Other abnormal and inconclusive findings on diagnostic imaging of breast (principal); N64.59 Other signs and symptoms in breast | CPT/HCPCS: A9577; C8908 ==